=== PATIENT | female | born 1950 | race Two or more races ===

== ENCOUNTER → 2017-06-08 | Outpatient (CLI) | payer BC ==
[~2017-06-08] MED LIST: /CELE20CA PO; /IPRAINH INH; /LOR25TA PO; BUSP5TA PO; CLAR10CA3 PO; CRES5TAB PO; DOCU10ELUD PO; FLON0.05; IMIT100T PO; LORA2TA PO; MED FOR GERD; NEXI40GR PO; PERCOCET PO; SENO8.6T9 PO; ULTR50TA PO; XANA1TAB2 PO; [UNRECOGNIZED DRUG - CODE] PO
--- NOTE | 2017-06-26 01:04 | ECWPNPC ---
PATIENT NAME: LUZ MARIA HOLLY : 1950 GENDER: FEMALE VISIT DATE: 06/08/2017 DISCHARGE DATE: 06/08/17 1420 VISIT LOCKED DATE TIME: PHYSICIAN: ABI HUTCHINS RESOURCE: ABI HUTCHINS REASON FOR APPOINTMENT 1. CHRONIC PAIN HISTORY OF PRESENT ILLNESS FALL RISK SCREENIN66 Y/O FEMALE REFERRED BY DR. SEQUEIRA-NEUROLOGY,[facility] FOR EVALUATION OF CHRONIC LOW BACK PAIN WITH HX OF FAILED BACK SURGERY.HERE FROM [place] FOR THE SUMMER.HX OF BEAR [place] PLACEMENT IN .HAS HAD INCREASE IN PAIN PAST TWO YEARS.HAS TRIALED EPIDURALS IN PAST AND THIS WASNT EFFECTIVE.RECENT PT HAS HELPED.STATES PERCOCET CAUSED FATIGUE AND LACK OF MOTIVATION.USING HYDROCODONE 10/325 Q6H QID OVER THE PAST 2 MONTHS THAT HAS BEEN HELPFUL.STATES SHE FINALLY HAS QUALITY OF LIFE NOW AND ABLE TO WALK ON A REGULAR BASIS.DENIES RECENT FEVER OR ILLNESS.DENIES BOWEL AND BLADDER INCONTINENCE. SCREENING :NO FALLS IN THE PAST YEAR PAIN SCREENING: PATIENT HAS A COMPLAINT OF ACUTE OR CHRONIC PAIN :YES CURRENT MEDICATIONS TAKING HYDROCODONE-ACETAMINOPHEN 10-325 MG TABLET 1 TABLET NEEDED ORALLY EVERY 6 HRS TAKING ARMOUR THYROID 60 MG TABLET 1 TABLET ON AN EMPTY STOMACH ORALLY ONCE A DAY TAKING RANITIDINE HCL 150 MG TABLET 1 TABLET AT BEDTIME ORALLY ONCE A DAY TAKING CREON 39478 UNIT CAPSULE DELAYED RELEASE PARTICLES ORALLY TAKING TRAZODONE HCL 150 MG TABLET 1 TABLET AT BEDTIME NEEDED ORALLY ONCE A DAY TAKING SUMATRIPTAN SUCCINATE 100 MG TABLET 1 TABLET NEEDED ORALLY TWICE A DAY TAKING FLUOXETINE HCL 40 MG CAPSULE 1 CAPSULE ORALLY ONCE A DAY MEDICATION LIST REVIEWED AND RECONCILED WITH THE PATIENT PAST MEDICAL HISTORY HYPOTHYROIDISM GERD MIGRAINES- TX'D WITH BOTOX INJECTIONS SCOLIOSIS SVT TX'D WITH CARDIOVERSION ALLERGIES N.K.D.A. SURGICAL HISTORY BEAR RODS FOR SCOLIOSIS 1979 RODS REMOVED 1984 SINUS SURGERY X3 87-95 R WRIST SURGERY 2005 FAMILY HISTORY FATHER: 65 YRS, DIAGNOSED WITH HYPERTENSION, HEART DISEASE MOTHER: 93 YRS, DIAGNOSED WITH OTHER 2 BROTHER(S) , 1 SISTER(S) . 1 BROTHER WITH ALZHEIMERS. SOCIAL HISTORY GENERAL: TOBACCO USE ARE YOU A:FORMER SMOKER HOW LONG HAS IT BEEN SINCE YOU LAST SMOKED?> 10 YEARS LUNG CANCER SCREENING SMOKING STATUS:FORMER SMOKER ALCOHOL SCREENING POINTS4 INTERPRETATIONPOSITIVE JAINISM [id number] PRESBY[employer]IAN LANG[employer]AGE LANGUAGES SPOKEN:FRENCH EDUCATION LEVEL OF EDUCATION:PROFESSIONAL SCHOOLS/MASTERS/PHD LEARNING BARRIERS / SPECIAL NEEDS BARRIERS TO LEARNING?NO HEARING IMPAIRED?NO VISION IMPAIRED?YES :CORRECTIVE LENSES COGNITIVELY IMPAIRED?NO READINESS TO LEARN?YES LEARNING PREFERENCES?YES :BOOKLETS, HANDOUTS ADVANCE DIRECTIVES HEALTH CARE PROXY?NO WOULD YOU LIKE MORE INFORMATION?NO DO YOU HAVE A DNR?NO WOULD YOU LIKE MORE INFORMATION?NO LIVING WILL?NO WOULD YOU LIKE MORE INFORMATION?NO POWER OF AIRCRAFT TECHNICIAN?NO HOSPITALIZATION/MAJOR DIAGNOSTIC PROCEDURE SURGERY RELATED REVIEW OF SYSTEMS REVIEWED BY: PROVIDER: ABI WELLS . CONSTITUTIONAL: ANY CHANGE IN YOUR MEDICAL CONDITION? NO . CHILLS NO . FEVER NO . INFECTION: DO YOU HAVE NEW INFECTIONS? NO . DO YOU HAVE HISTORY OF MRSA? NO . MUSCULOSKELETAL: ANY NEW PATTERNS OF PAIN OR NUMBNESS? NO . SYTEMIC LUPUS NO . GASTROENTEROLOGY: ANY NEW CHANGE IN BOWEL CONTROL? NO . BARRETTS ESOPHAGUS NO . CIRRHOSIS NO . HEPATITIS NO . LIVER FAILURE NO . ACID REFLUX NO . UNEXPLAINED WEIGHT LOSS NO . GENITOURINARY: ANY NEW CHANGE IN BLADDER CONTROL? NO . IS THERE A CHANCE YOU COULD BE ? NO . HEMATOLOGY/LYMPH: DO YOU TAKE ANY BLOOD THINNERS? (FOR EXAMPLE- COUMADIN, PLAVIX, AGGRENOX, PLATEL, PRADAXA, OR XARELTO) NO . WHEN WAS YOUR LAST DOSE? DATE: TIME: . LOW PLATELET COUNT NO . SICKLE CELL DISEASE NO . VON WILLIEBRANDS NO . FACTOR V LEIDEN NO . THALLASEMIA NO . ANEMIA NO . EASY BRUISING NO . NEUROLOGY: HAVE YOU FALLEN IN THE PAST 6 MONTHS? YES, PT STATES SHE FELL IN [place] ABOUT DENY TIME, SLIPPED AND FELL ON DRYER SHEET. PT STATES HER PCP EXAMINED HER AFTER FALL . ANY NEW EXTREMITY NUMBNESS OR WEAKNESS? NO . HEAD INJURY NO . DEMENTIA NO . CEREBRAL PALSY NO . MULTIPLE SCLEROSIS NO . DIZZINESS NO . HEADACHE NO . STROKES NO . VERTIGO NO . CARDIOLOGY: DO YOU HAVE A PACEMAKER OR DEFIBRILLATOR? NO . ANGINA NO . HEART ATTACK NO . HEART SURGERY NO . CONGESTIVE HEART FAILURE/FLUID OVERLOAD NO . CHEST PAIN NO . HIGH BLOOD PRESSURE NO . IRREGULAR HEART BEAT NO . RESPIRATORY: HAVE YOU BEEN SICK IN THE PAST WEEK? NO . FEVER NO . FLU LIKE SYMPTOMS? NO . CPAP NO . BYPAP NO . ASTHMA NO . EMPHYSEMA NO . CHRONIC LUNG DISEASES NO . SHORTNESS OF BREATH ON EXERTION NO . COUGH NO . SNORING NO . INTEGUMENTARY: DO YOU HAVE ANY RASHES OR OPEN SORES? NO . ALLERGIC/IMMUNO: ARE YOU ALLERGIC TO SHELLFISH OR IV DYE? NO . ANY NEW ALLERGIES? NO . PSYCHIATRIC: DO YOU HAVE THOUGHTS OF HURTING YOURSELF OR SOMEONE ELSE? NO . ARE YOU ABUSED, NEGLECTED, OR IN AN UNSAFE ENVIRONMENT? NO . ENDOCRINOLOGY: ARE YOU DIABETIC? NO . THYROID DISORDER NO . OTHER: DO YOU NEED ANY PRESCRIPTIONS? YES, HYDROCODONE-APAP 10/325 . IF YES, PLEASE LIST: ____ . ANY NEW PROBLEMS WITH YOUR MEDICATIONS? NO . WHEN DID YOU LAST EAT? ____ . WHEN DID YOU LAST DRINK? ____ . WHAT DID YOU LAST DRINK? ____ . NAME OF PERSON DRIVING YOU HOME? ____ . DO YOU HAVE ANY OTHER QUESTIONS OR CONCERNS NO . VITAL SIGNS WT 111.8 LBS, HT 62", BMI 20.45 INDEX, BP 181/98 MM HG, REPEAT BP 176/88 MANUAL, HR 80 /MIN, RR 16 /MIN, TEMP 98.1 F, OXYGEN SAT % 98%, SAFE IN ENV? (Y/N) Y, NA INITIALS TL 1253, REVIEWED BY: XUAN. EXAMINATION GENERAL EXAMINATION: GENERAL APPEARANCE:ALERT AND ORIENTED. PSYCHAFFECT NORMAL, GOOD EYE CONTACT. NECK:NO THYROID ABNORMALITY, NO LYMPHADENOPATHY, NO MASS, NO CAROTID BRUIT, TRACHEA MIDLINE. LUNGS:LUNG BREWER ARE CLEAR TO AUSCULTATION BILATERALLY. GOOD MOVEMENT OF AIR. HEART:S1, S2 IN A REGULAR RATE AND RHYTHM. NO SIGNIFICANT MURMURS, RUBS OR GALLOPS NOTED. BACK:MARKED SCOLIOSIS.WELL HEALED INCISION OVER ENTIRE THORACIC AND L/S SPINE.SPECIFIC POINT TENDERNESS/TRIGGER POINT OVER RIGHT MID THORACIC PARASPINAL REGION. ABDOMEN:SOFT, NON-TENDER, NO ORGANOMEGALY, BOWEL SOUNDS ARE NORMAL. ASSESSMENTS PAIN IN THORACIC SPINE - M54.6 (PRIMARY) LOW BACK PAIN AT MULTIPLE SITES - M54.5 MYALGIA - M79.1 CHRONIC PRESCRIPTION OPIATE USE - Z79.891 TREATMENT PAIN IN THORACIC SPINE REFILL HYDROCODONE-ACETAMINOPHEN TABLET, 10-325 MG, 1 TABLET NEEDED, ORALLY, EVERY 6 HRS PRN MDD4, 30 DAY(S), 120, REFILLS 0 PROCEDURE CODES FA211 ESTABILISHED PATIENT [facility] CHARGE DISPOSITION & COMMUNICATION FOLLOW UP 4 WEEKS ELECTRONICALLY SIGNED BY PRISCILLA JAMIL ON 06/25/2017 AT 08:36 AM EDT DISCLAIMER : THIS IS A VISIT SUMMARY EXTRACTED FROM THE ECLINICALWORKS CHART. IT IS NOT A COPY OF THE ViptableINICALWORKS PROGRESS NOTE. BRIAND
== END ==
LOC: M PAIN 13:20
PROVIDERS: ATTEND Nurse Practitioner Family
DX: M54.6 Pain in thoracic spine (principal); M54.5 Low back pain; M79.1 Myalgia; G89.29 Other chronic pain; E03.9 Hypothyroidism, unspecified; K21.9 Gastro-esophageal reflux disease without esophagitis; G43.909 Migraine, unspecified, not intractable, without status migrainosus; M41.9 Scoliosis, unspecified; Z86.79 Personal history of other diseases of the circulatory system; Z79.891 Long term (current) use of opiate analgesic; Z79.899 Other long term (current) drug therapy; Z87.891 Personal history of nicotine dependence

== ENCOUNTER → 2017-07-14 | Outpatient (CLI) | payer BC ==
--- NOTE | 2017-07-24 00:51 | ECWPNPC ---
PATIENT NAME: LUZ MARIA HOLLY : 1950 GENDER: FEMALE VISIT DATE: 07/14/2017 DISCHARGE DATE: 07/14/17 1422 VISIT LOCKED DATE TIME: PHYSICIAN: ABI HUTCHINS RESOURCE: ABI HUTCHINS REASON FOR APPOINTMENT 1. BACK HISTORY OF PRESENT ILLNESS HISTORY OF PRESENT ILLNESS: HERE FOR MEDICINE MANAGEMENT OF CHRONIC LOW BACK PAIN.AT HER LAST VISIT WHICH WAS HER INITIAL VISIT WE PRESCRIBED HYDROCODONE 10/325 Q6H PRN MDD4.PATIENT FINDS THIS SOMEWHAT HELPFUL BUT FEELS SHE NEEDS HIGHER DOSE.RATING PAIN VAS 7/10.DISCUSSED POTENTIAL RISKS OF OPIODS TO INCLUDE RESPIRATORY ARREST AND .DISCUSSED MEDICATION AND TREATMENT OPTIONS.DENIES SIDE EFFECTS WITH HYDRTOCODONE.HAS TRIALED MULTIPLE MEDICATIONS IN PAST THAT HAVE CAUSED SIDE EFFECTS OR WERE INEFFECTIVE.HISTORY OF MULTIPLE BACK SURGERIES TO INCLUDE BEAR [place] PLACEMENT. PAIN THE PATIENT DESCRIBES THE PAIN... FALL RISK SCREENING: SCREENING :NO FALLS IN THE PAST YEAR CURRENT MEDICATIONS TAKING ARMOUR THYROID 60 MG TABLET 1 TABLET ON AN EMPTY STOMACH ORALLY ONCE A DAY TAKING RANITIDINE HCL 150 MG TABLET 1 TAB ORALLY TWICE A DAY NEEDED TAKING CREON 26222 UNIT CAPSULE DELAYED RELEASE PARTICLES 1 TAB ORALLY 4 TIMES A DAY TAKING TRAZODONE HCL 150 MG TABLET 1 TABLET AT BEDTIME NEEDED ORALLY ONCE A DAY TAKING SUMATRIPTAN SUCCINATE 100 MG TABLET 1 TABLET NEEDED ORALLY TWICE A DAY TAKING FLUOXETINE HCL 40 MG CAPSULE 1 CAPSULE ORALLY ONCE A DAY TAKING HYDROCODONE-ACETAMINOPHEN 10-325 MG TABLET 1 TABLET NEEDED ORALLY EVERY 6 HRS PRN MDD4, NOTES: 07/14/17 AT 1100 MEDICATION LIST REVIEWED AND RECONCILED WITH THE PATIENT PAST MEDICAL HISTORY HYPOTHYROIDISM GERD MIGRAINES- TX'D WITH BOTOX INJECTIONS SCOLIOSIS SVT TX'D WITH CARDIOVERSION ALLERGIES N.K.D.A. SOCIAL HISTORY GENERAL: TOBACCO USE ARE YOU A:FORMER SMOKER HOW LONG HAS IT BEEN SINCE YOU LAST SMOKED?> 10 YEARS LUNG CANCER SCREENING SMOKING STATUS:FORMER SMOKER ALCOHOL SCREENING DID YOU HAVE A DRINK CONTAINING ALCOHOL IN THE PAST YEAR?YES HOW OFTEN DID YOU HAVE A DRINK CONTAINING ALCOHOL IN THE PAST YEAR?TWO TO THREE TIMES PER WEEK (3 POINTS) HOW MANY DRINKS DID YOU HAVE ON A TYPICAL DAY WHEN YOU WERE DRINKING IN THE PAST YEAR?3 OR 4 (1 POINT) HOW OFTEN DID YOU HAVE SIX OR MORE DRINKS ON ONE OCCASION IN THE PAST YEAR?NEVER (0 POINTS) POINTS4 INTERPRETATIONPOSITIVE ZOROASTRIAN [id number] [employer]ANG[employer] LANGUAGES SPOKEN:PANAMANIAN EDUCATION LEVEL OF EDUCATION:PROFESSIONAL SCHOOLS/MASTERS/PHD LEARNING BARRIERS / SPECIAL NEEDS CHANGE FROM LAST VISIT?NO BARRIERS TO LEARNING?NO HEARING IMPAIRED?NO VISION IMPAIRED?YES :CORRECTIVE LENSES COGNITIVELY IMPAIRED?NO READINESS TO LEARN?YES LEARNING PREFERENCES?YES :BOOKLETS, HANDOUTS LEARNING CAPABILITIES PRESENT?YES EMOTIONAL BARRIERS?NO SPECIAL DEVICES?NO PURE PAK MACHINE OPERATOR NEEDED?NO PAIN CLINIC PFS, CLERGY, PUBLIC HEALTH REFERRALS PFS REFERRAL NEEDED?NO CLERGY REFERRAL NEEDED?NO PUBLIC HEALTH REFERRAL NEEDED?NO HAS THE PATIENT BEEN EDUCATED REGARDING HIS/HER PLAN OF CARE?YES HAS THE PATIENT BEEN EDUCATED REGARDING PAIN, THE RISK FOR PAIN, THE IMPORTANCE OF EFFECTIVE PAIN MANAGEMENT, AND THE PAIN ASSESSMENT PROCESS?YES ADVANCE DIRECTIVES HEALTH CARE PROXY?NO WOULD YOU LIKE MORE INFORMATION?NO DO YOU HAVE A DNR?NO WOULD YOU LIKE MORE INFORMATION?NO LIVING WILL?NO WOULD YOU LIKE MORE INFORMATION?NO POWER OF COST COORDINATOR?NO WOULD YOU LIKE MORE INFORMATION?NO REVIEW OF SYSTEMS REVIEWED BY: PROVIDER: ABI WELLS . CONSTITUTIONAL: ANY CHANGE IN YOUR MEDICAL CONDITION? NO . CHILLS NO . FEVER NO . INFECTION: DO YOU HAVE NEW INFECTIONS? NO . DO YOU HAVE HISTORY OF MRSA? NO . MUSCULOSKELETAL: ANY NEW PATTERNS OF PAIN OR NUMBNESS? NO . GASTROENTEROLOGY: ANY NEW CHANGE IN BOWEL CONTROL? NO . GENITOURINARY: ANY NEW CHANGE IN BLADDER CONTROL? NO . IS THERE A CHANCE YOU COULD BE ? NO . HEMATOLOGY/LYMPH: DO YOU TAKE ANY BLOOD THINNERS? (FOR EXAMPLE- COUMADIN, PLAVIX, AGGRENOX, PLATEL, PRADAXA, OR XARELTO) NO . WHEN WAS YOUR LAST DOSE? DATE: TIME: . NEUROLOGY: HAVE YOU FALLEN IN THE PAST 6 MONTHS? NO . ANY NEW EXTREMITY NUMBNESS OR WEAKNESS? NO . CARDIOLOGY: DO YOU HAVE A PACEMAKER OR DEFIBRILLATOR? NO . RESPIRATORY: HAVE YOU BEEN SICK IN THE PAST WEEK? NO . FEVER NO . FLU LIKE SYMPTOMS? NO . COUGH NO . INTEGUMENTARY: DO YOU HAVE ANY RASHES OR OPEN SORES? NO . ALLERGIC/IMMUNO: ARE YOU ALLERGIC TO SHELLFISH OR IV DYE? NO . ANY NEW ALLERGIES? NO . PSYCHIATRIC: DO YOU HAVE THOUGHTS OF HURTING YOURSELF OR SOMEONE ELSE? NO . ARE YOU ABUSED, NEGLECTED, OR IN AN UNSAFE ENVIRONMENT? NO . ENDOCRINOLOGY: ARE YOU DIABETIC? NO . OTHER: DO YOU NEED ANY PRESCRIPTIONS? NO . IF YES, PLEASE LIST: ____ . ANY NEW PROBLEMS WITH YOUR MEDICATIONS? NO . WHEN DID YOU LAST EAT? ____ . WHEN DID YOU LAST DRINK? ____ . WHAT DID YOU LAST DRINK? ____ . NAME OF PERSON DRIVING YOU HOME? ____ . DO YOU HAVE ANY OTHER QUESTIONS OR CONCERNS YES, &QUOT;JUST ABOUT MEDS&QUOT; . VITAL SIGNS WT 116.4 LBS, HT 62", BMI 21.29 INDEX, BP 150/98 MM HG, HR 93 /MIN, RR 18 /MIN, TEMP 98.3 F, OXYGEN SAT % 98%, REVIEWED BY: HOLLIS (DONE AT 1330). EXAMINATION GENERAL EXAMINATION: GENERAL APPEARANCE:ALERT AND ORIENTED. PSYCHAFFECT NORMAL, GOOD EYE CONTACT. NECK:NO THYROID ABNORMALITY, NO LYMPHADENOPATHY, NO MASS, NO CAROTID BRUIT, TRACHEA MIDLINE. LUNGS:LUNG BREWER ARE CLEAR TO AUSCULTATION BILATERALLY. GOOD MOVEMENT OF AIR. HEART:S1, S2 IN A REGULAR RATE AND RHYTHM. NO SIGNIFICANT MURMURS, RUBS OR GALLOPS NOTED. BACK:MARKED SCOLIOSIS.WELL HEALED INCISION OVER ENTIRE THORACIC AND L/S SPINE.SPECIFIC POINT TENDERNESS/TRIGGER POINT OVER RIGHT MID THORACIC PARASPINAL REGION. ABDOMEN:SOFT, NON-TENDER, NO ORGANOMEGALY, BOWEL SOUNDS ARE NORMAL. ASSESSMENTS PAIN IN THORACIC SPINE - M54.6 (PRIMARY) LOW BACK PAIN AT MULTIPLE SITES - M54.5 MYALGIA - M79.1 CHRONIC PRESCRIPTION OPIATE USE - Z79.891 TREATMENT PAIN IN THORACIC SPINE REFILL HYDROCODONE-ACETAMINOPHEN TABLET, 10-325 MG, 1 TABLET NEEDED, ORALLY, EVERY 6 HRS PRN MDD4, 30 DAY(S), 120, REFILLS 0, NOTES: 07/14/17 AT 1100 NOTES: DCS STIM INFO. GIVEN, ISTOP REGISTRY REVIEWED AND DEMNOSTRATES COMPLLIANCE. BRINGS IN MEDICATIONS WHICH IS APPROPRIATE FOR WHAT WAS DISPENSED. RECENT URINE TOXICOLOGY REVIEWED. NO UNAUTHORIZED MEDICATIONS. NO ILLICIT SUBSTANCES AND PRESCRIBED MEDICATIONS WERE PRESENT. URINE TOX TODAY, RISKS AND BENEFITS OF NARCOTIC/OPIOD MEDICATIONS WERE REVIEWED WITH PATIENT - THIS INCLUDES BUT IS NOT LIMITED TO RISK OF DEPENDANCE/DEVELOPMENT OF ADDICTION, MOOD DISTURBANCE AND DEPRESSION, OSTEOPOROSIS, HORMONAL AND LABIDAL CHANGES, RESPIRATORY DEPRESSION AND . PATIENT IS ADVISED NOT TO DRIVE WHILE ON THESE MEDICATIONS. PROCEDURE CODES FA211 ESTABILISHED PATIENT [facility] CHARGE DISPOSITION & COMMUNICATION FOLLOW UP 2 MONTHS ELECTRONICALLY SIGNED BY PRISCILLA JAMIL ON 07/23/2017 AT 05:36 PM EDT DISCLAIMER : THIS IS A VISIT SUMMARY EXTRACTED FROM THE ECLINICALBeat.no CHART. IT IS NOT A COPY OF THE Venn[employer]INICALWORKS PROGRESS NOTE. JASON
== END ==
LOC: M PAIN 13:15
PROVIDERS: ATTEND Nurse Practitioner Family
DX: M54.6 Pain in thoracic spine (principal); M54.5 Low back pain; M79.1 Myalgia; G89.29 Other chronic pain; E03.9 Hypothyroidism, unspecified; K21.9 Gastro-esophageal reflux disease without esophagitis; M41.9 Scoliosis, unspecified; G43.909 Migraine, unspecified, not intractable, without status migrainosus; Z86.79 Personal history of other diseases of the circulatory system; Z79.891 Long term (current) use of opiate analgesic; Z79.899 Other long term (current) drug therapy; Z87.891 Personal history of nicotine dependence

== ENCOUNTER → 2017-10-14 | Outpatient (CLI) | payer BC | LOC: M PAIN 14:30 | DX: G89.29 Other chronic pain (principal); M54.6 Pain in thoracic spine; Z79.891 Long term (current) use of opiate analgesic; E03.9 Hypothyroidism, unspecified; K21.9 Gastro-esophageal reflux disease without esophagitis; G43.909 Migraine, unspecified, not intractable, without status migrainosus; M41.9 Scoliosis, unspecified; Z79.899 Other long term (current) drug therapy; Z87.891 Personal history of nicotine dependence | CPT/HCPCS: G0463 ==

== ENCOUNTER → 2018-04-20 | Outpatient (CLI) | payer BC | LOC: M PAIN 13:30 | DX: G89.29 Other chronic pain (principal); M54.6 Pain in thoracic spine; E03.9 Hypothyroidism, unspecified; J30.2 Other seasonal allergic rhinitis; K21.9 Gastro-esophageal reflux disease without esophagitis; G43.909 Migraine, unspecified, not intractable, without status migrainosus; M41.9 Scoliosis, unspecified; Z79.891 Long term (current) use of opiate analgesic; Z79.899 Other long term (current) drug therapy; Z87.891 Personal history of nicotine dependence | CPT/HCPCS: G0463 ==

== ENCOUNTER → 2018-05-19 | Outpatient (CLI) | payer BC | LOC: M PAIN 13:45 | DX: M54.6 Pain in thoracic spine (principal); E03.9 Hypothyroidism, unspecified; K21.9 Gastro-esophageal reflux disease without esophagitis; G43.909 Migraine, unspecified, not intractable, without status migrainosus; M41.9 Scoliosis, unspecified; Z79.891 Long term (current) use of opiate analgesic; Z79.899 Other long term (current) drug therapy; Z87.891 Personal history of nicotine dependence; J30.2 Other seasonal allergic rhinitis | CPT/HCPCS: G0463 ==

== ENCOUNTER → 2018-08-02 | Outpatient (CLI) | payer BC | LOC: M PAIN 10:30 | DX: M54.6 Pain in thoracic spine (principal); E03.9 Hypothyroidism, unspecified; K21.9 Gastro-esophageal reflux disease without esophagitis; J30.2 Other seasonal allergic rhinitis; M41.9 Scoliosis, unspecified; G43.909 Migraine, unspecified, not intractable, without status migrainosus; Z79.891 Long term (current) use of opiate analgesic; Z87.891 Personal history of nicotine dependence; Z79.899 Other long term (current) drug therapy | CPT/HCPCS: G0463 ==

== ENCOUNTER → 2019-01-05 | Outpatient (CLI) | payer BC ==
--- NOTE | 2019-01-20 01:36 | ECWPNPC ---
PATIENT NAME: LUZ MARIA HOLLY : 1950 GENDER: FEMALE VISIT DATE: 01/05/2019 DISCHARGE DATE: 01/05/19 1121 VISIT LOCKED DATE TIME: PHYSICIAN: ABI HUTCHINS RESOURCE: ABI HUTCHINS REASON FOR APPOINTMENT 1. BACK/MEDS HISTORY OF PRESENT ILLNESS HISTORY OF PRESENT ILLNESS: HERE FOR MEDICINE MANAGEMENT OF CHRONIC LOW BACK PAIN AND GENERALIZED BACK PAIN.HISTORY OF EXTENSIVE BACK SURGERY IN THE PAST WITH BEAR [place] PLACEMENT AND REMOVAL SEVERAL YEARS AGO.RATING PAIN VAS 7/10. ADMITS TO OVERTAKING OXYCODONE 10/325 AND HAS RUN OUT.STATES LAST DOSE WAS LAST NIGHT.SHE ALSO IS ADMITTING TO DRINKING ETOH ON A REGULAR BASIS.STATES SHE IS ABLE TO TOLERATE ACTIVITIES BETTER AND HAS IMPROVED SLEEP.DENIES SIDE EFFECTS. PAIN THE PATIENT DESCRIBES THE PAIN... THE PATIENT DESCRIBES THE PAIN... THE PATIENT DESCRIBES THE PAIN... FALL RISK SCREENING: SCREENING : NO FALLS IN THE PAST YEAR. CURRENT MEDICATIONS TAKING ARMOUR THYROID 60 MG TABLET 1 TABLET ON AN EMPTY STOMACH ORALLY ONCE A DAY TAKING RANITIDINE HCL 150 MG TABLET 1 TAB ORALLY TWICE A DAY NEEDED TAKING TRAZODONE HCL 300 MG TABLET 1 TABLET AT BEDTIME NEEDED ORALLY ONCE A DAY TAKING SUMATRIPTAN SUCCINATE 100 MG TABLET 1 TABLET NEEDED ORALLY TWICE A DAY TAKING CYMBALTA 60 MG CAPSULE DELAYED RELEASE PARTICLES 1 CAPSULE ORALLY ONCE A DAY TAKING PERCOCET 10-325 MG TABLET 1 TABLET NEEDED ORALLY EVERY 6 HRS PRN MDD4 TAKING MOBIC 15 MG TABLET 1 TABLET ORALLY DAILY NOT-TAKING CREON 81248 UNIT CAPSULE DELAYED RELEASE PARTICLES 1 TAB ORALLY TWICE DAILY NOT-TAKING NORCO 10-325 MG TABLET 1 TABLET NEEDED ORALLY EVERY 6 HRS PRN MDD4 NOT-TAKING ENALAPRIL 5 MG TABLET ONE TAB ORALLY DAILY MEDICATION LIST REVIEWED AND RECONCILED WITH THE PATIENT PAST MEDICAL HISTORY HYPOTHYROIDISM GERD MIGRAINES- TX'D WITH BOTOX INJECTIONS SCOLIOSIS SVT TX'D WITH CARDIOVERSION FRACTURED RIGHT HIP FRACTURED RIGHT WRIST ALLERGIES SEASONAL SURGICAL HISTORY BEAR RODS FOR SCOLIOSIS 1980 RODS REMOVED 1984 SINUS SURGERY X3 87-95 R WRIST SURGERY 2005 RIGHT HIP SURGERY 09/2018 RIGHT WRIST SURGERY 09/2018 FAMILY HISTORY FATHER: 65 YRS, DIAGNOSED WITH HYPERTENSION, HEART DISEASE MOTHER: 93 YRS, DIAGNOSED WITH OTHER 2 BROTHER(S) , 1 SISTER(S) . 1 BROTHER WITH ALZHEIMERS. SOCIAL HISTORY GENERAL: TOBACCO USE ARE YOU A:FORMER SMOKER HOW LONG HAS IT BEEN SINCE YOU LAST SMOKED?> 10 YEARS LUNG CANCER SCREENING SMOKING STATUS:FORMER SMOKER ALCOHOL SCREENING DID YOU HAVE A DRINK CONTAINING ALCOHOL IN THE PAST YEAR?YES HOW OFTEN DID YOU HAVE A DRINK CONTAINING ALCOHOL IN THE PAST YEAR?TWO TO THREE TIMES PER WEEK (3 POINTS) HOW MANY DRINKS DID YOU HAVE ON A TYPICAL DAY WHEN YOU WERE DRINKING IN THE PAST YEAR?3 OR 4 (1 POINT) HOW OFTEN DID YOU HAVE SIX OR MORE DRINKS ON ONE OCCASION IN THE PAST YEAR?NEVER (0 POINTS) POINTS4 INTERPRETATIONPOSITIVE RECREATIONAL DRUG USE DRUG USE?NO PENTECOSTAL [id number] [employer] LANG[employer]AGE LANGUAGES SPOKEN:ICELANDIC EDUCATION LEVEL OF EDUCATION:PROFESSIONAL SCHOOLS/MASTERS/PHD LEARNING BARRIERS / SPECIAL NEEDS CHANGE FROM LAST VISIT?NO BARRIERS TO LEARNING?NO HEARING IMPAIRED?NO VISION IMPAIRED?YES :CORRECTIVE LENSES COGNITIVELY IMPAIRED?NO READINESS TO LEARN?YES LEARNING PREFERENCES?YES :BOOKLETS, HANDOUTS LEARNING CAPABILITIES PRESENT?YES EMOTIONAL BARRIERS?NO SPECIAL DEVICES?NO LOGGING SHOVEL OPERATOR NEEDED?NO PAIN CLINIC PFS, CLERGY, PUBLIC HEALTH REFERRALS PFS REFERRAL NEEDED?NO CLERGY REFERRAL NEEDED?NO PUBLIC HEALTH REFERRAL NEEDED?NO HAS THE PATIENT BEEN EDUCATED REGARDING HIS/HER PLAN OF CARE?YES HAS THE PATIENT BEEN EDUCATED REGARDING PAIN, THE RISK FOR PAIN, THE IMPORTANCE OF EFFECTIVE PAIN MANAGEMENT, AND THE PAIN ASSESSMENT PROCESS?YES ADVANCE DIRECTIVE ADVANCE DIRECTIVE DISCUSSED WITH PATIENT:YES STATES HCP INFORMATION AT HOME, DECLINES ASSISTANCE IN FILLING OUT. REVIEWED WITH PATIENT 08/02/18 1101REVIEWED WITH PATIENT 01/05/19 1024 JS. HOSPITALIZATION/MAJOR DIAGNOSTIC PROCEDURE SURGERY RELATED SURGERY RELATED 09/2018 REVIEW OF SYSTEMS REVIEWED BY: PROVIDER: ABI WELLS . CONSTITUTIONAL: ANY CHANGE IN YOUR MEDICAL CONDITION? YES, RIGHT HIP AND RIGHT WRIST FRACTURES . CHILLS NO . FEVER NO . INFECTION: DO YOU HAVE NEW INFECTIONS? YES, STATES RECENT BRONCHITIS, FINISHED WITH MEDICATION . DO YOU HAVE HISTORY OF MRSA? NO . MUSCULOSKELETAL: ANY NEW PATTERNS OF PAIN OR NUMBNESS? NO . GASTROENTEROLOGY: ANY NEW CHANGE IN BOWEL CONTROL? NO . GENITOURINARY: ANY NEW CHANGE IN BLADDER CONTROL? NO . IS THERE A CHANCE YOU COULD BE ? NO . HEMATOLOGY/LYMPH: DO YOU TAKE ANY BLOOD THINNERS? (FOR EXAMPLE- COUMADIN, PLAVIX, AGGRENOX, PLATEL, PRADAXA, OR XARELTO) NO . WHEN WAS YOUR LAST DOSE? DATE: TIME: . NEUROLOGY: HAVE YOU FALLEN IN THE PAST 12 MONTHS? YES, STATES FALL IN SEPTEMBER. FRACTURED RIGHT HIP AND RIGHT WRIST AND HAD SURGERY TO REPAIR BOTH . ANY NEW EXTREMITY NUMBNESS OR WEAKNESS? YES, NEW PAIN AND NUMBNESS TO RIGHT HIP AND WRIST . CARDIOLOGY: DO YOU HAVE A PACEMAKER OR DEFIBRILLATOR? NO . RESPIRATORY: HAVE YOU BEEN SICK IN THE PAST WEEK? YES, BRONCHITIS . FEVER NO . FLU LIKE SYMPTOMS? NO . COUGH YES . INTEGUMENTARY: DO YOU HAVE ANY RASHES OR OPEN SORES? NO . ALLERGIC/IMMUNO: ARE YOU ALLERGIC TO IV DYE? NO . ANY NEW ALLERGIES? NO . PSYCHIATRIC: DO YOU HAVE THOUGHTS OF HURTING YOURSELF OR SOMEONE ELSE? NO . ARE YOU ABUSED, NEGLECTED, OR IN AN UNSAFE ENVIRONMENT? NO . ENDOCRINOLOGY: ARE YOU DIABETIC? NO . OTHER: DO YOU NEED ANY PRESCRIPTIONS? YES . IF YES, PLEASE LIST: ____PERCOCET . ANY NEW PROBLEMS WITH YOUR MEDICATIONS? NO . WHEN DID YOU LAST EAT? ____ . WHEN DID YOU LAST DRINK? ____ . WHAT DID YOU LAST DRINK? ____ . NAME OF PERSON DRIVING YOU HOME? ____ . DO YOU HAVE ANY OTHER QUESTIONS OR CONCERNS YES, HAS QUESTIONS REGARDING PAIN MEDICATIONS . VITAL SIGNS WT 112 LBS, HT 62", BMI 20.48 INDEX, BP 138/74 MM HG, HR 86 /MIN, RR 18 /MIN, TEMP 97.5 F, OXYGEN SAT % 97%, SAFE IN ENV? (Y/N) YES, NA INITIALS SC 10:20, REVIEWED BY: ROSA. EXAMINATION GENERAL EXAMINATION: GENERAL APPEARANCE:AWAKE,ALERT ,PLEAASANT . PSYCHAFFECT NORMAL . LUNGS:LUNG BREWER ARE CLEAR TO AUSCULTATION BILATERALLY. GOOD MOVEMENT OF AIR . HEART:S1, S2 IN A REGULAR RATE AND RHYTHM. NO SIGNIFICANT MURMURS, RUBS OR GALLOPS NOTED . ASSESSMENTS PAIN IN THORACIC SPINE - M54.6 (PRIMARY) CHRONIC PRESCRIPTION OPIATE USE - Z79.891 TREATMENT PAIN IN THORACIC SPINE STOP PERCOCET TABLET, 10-325 MG, 1 TABLET NEEDED, ORALLY, EVERY 6 HRS PRN MDD4 START PERCOCET TABLET, 5-325 MG, 1 TAB DIRECTED, ORALLY, 1 TAB Q6H X3 DAYS,1 TAB 3X DAYX3 DAYS,1 TAB DAY X 3 DAYS THEN STOP MDD4, 9 DAYS, 24, REFILLS 0 START CLONIDINE HCL TABLET, 0.1 MG, 1 TAB, ORALLY, BID X3 DAYS PRN WITHDRAWAL SYMPTOMS, 3 DAYS, 6, REFILLS 0 NOTES: START OXYCODONE 5/325 1 TAB Q6H X3 DAYS,THEN 3 TAB PER DAY X3 DAYS,THEN 1 TAB PER DAY X3 DAYS THEN STOP.USE CLONIDINE 1 TAB 2X PER DAY IF YOU HAVE WITHDRAWAL SYMPTOMS X 3 DAYS AFTER STOPPING OXYCODONE. PROCEDURE CODES FA211 ESTABILISHED PATIENT [facility] CHARGE DISPOSITION & COMMUNICATION FOLLOW UP 2 MONTHS ELECTRONICALLY SIGNED BY PRISCILLA HOANG ON 01/19/2019 AT 04:24 PM EDT DISCLAIMER : THIS IS A VISIT SUMMARY EXTRACTED FROM THE ECLINICALWORKS CHART. IT IS NOT A COPY OF THE ECLINICALWORKS PROGRESS NOTE. JASON
== END ==
LOC: M PAIN 10:15
PROVIDERS: ATTEND Nurse Practitioner Family
DX: M54.6 Pain in thoracic spine (principal); G89.29 Other chronic pain; E03.9 Hypothyroidism, unspecified; J30.2 Other seasonal allergic rhinitis; Z79.891 Long term (current) use of opiate analgesic; Z79.899 Other long term (current) drug therapy; Z87.891 Personal history of nicotine dependence; Z86.69 Personal history of other diseases of the nervous system and sense organs